=== PATIENT | male | born 1965 | race Caucasian/White ===

== ENCOUNTER 2017-11-18 22:53 | Inpatient (IN) | payer BC ==
[~2017-11-18] VITALS: Ht 175.3 cm; Wt 108.4 kg
[2017-11-18 23:05] VITALS: Ht 175.3 cm; Wt 108.4 kg
[2017-11-18 23:38] LABS: BASOPHIL % 0.4 % (0-2); PLATELET COUNT 173 x10^3mcL (130-400); RED CELL DISTRIBUTION WIDTH 12.3 % (11.5-14.5)
[2017-11-18 23:48] LABS: CALCIUM 8.4 mg/dL (8.5-10.1); CARBON DIOXIDE 26.9 mmol/L (21-32); CHLORIDE SERUM 108 mmol/L (98-107); CREATININE SERUM 0.9 mg/dL (0.7-1.3); GFR1 > 60 mL/min; GLUCOSE SERUM 110 mg/dL (74-106); POTASSIUM SERUM 4.2 mmol/L (3.5-5.1); SODIUM SERUM 145 mmol/L (136-145)
[2017-11-18 23:52] LABS: ALBUMIN 3.5 g/dL (3.4-5.0); ALKALINE PHOSPHATASE 77 U/L (46-116); ALT/SGPT 38 U/L (16-63); AMYLASE 79 U/L (25-115); AST/SGOT 24 U/L (15-37); BILIRUBIN TOTAL 0.29 mg/dL (0.20-1.00); CHOLESTEROL 167 mg/dL (<200); LIPASE 110 IU/L (73-393); TOTAL PROTEIN, SERUM 7.3 g/dL (6.4-8.2)
[2017-11-18 23:53] LABS: HDL CHOLESTEROL 32 mg/dL (40-60)
[2017-11-19] MEDS ORDERED: TRAMADOL HCL50 MG PO (00:33)
[2017-11-19] MEDS ORDERED: HYDROCHLOROTH12.5 M2 PO (00:34)
[2017-11-19 01:29] LABS: MAGNESIUM 2.3 mg/dL (1.8-2.4); PHOSPHOROUS 4.7 mg/dL (2.5-4.9)
[2017-11-19 01:37] LABS: FREE T4 1.05 ng/dL (0.76-1.46); T4(THYROXINE) 5.7 ug/dL (4.7-13.3)
[2017-11-19 01:57] LABS: CHOLESTEROL/HDL RATIO 5.3
[2017-11-19] MEDS ORDERED: LOSARTAN POTASS50 M1 PO (02:17)
[2017-11-19 02:28] VITALS: BP 111/71
[2017-11-19 02:44] LABS: microscopic required? NO
[2017-11-19 02:45] LABS: T3 TOTAL 1.15 ng/mL
[2017-11-19 03:01] LABS: UA SPECIFIC GRAVITY >=1.030 (1.005-1.035); urine erythrocyte NEGATIVE (NEGATIVE)
[2017-11-19 03:12] LABS: AMPHETAMINE QUAL UR NONE DETECTED (See below)
[2017-11-19 06:42] VITALS: BP 108/68
[2017-11-19 06:51] LABS: CALCIUM 8.6 mg/dL (8.5-10.1); CARBON DIOXIDE 28.7 mmol/L (21-32); CHLORIDE SERUM 109 mmol/L (98-107); GFR1 > 60 mL/min; GLUCOSE SERUM 106 mg/dL (74-106); MAGNESIUM 2.4 mg/dL (1.8-2.4); PHOSPHOROUS 4.1 mg/dL (2.5-4.9); POTASSIUM SERUM 4.4 mmol/L (3.5-5.1); SODIUM SERUM 143 mmol/L (136-145)
[2017-11-19 06:52] LABS: BASOPHIL % 0.4 % (0-2); PLATELET COUNT 158 x10^3mcL (130-400); RED CELL DISTRIBUTION WIDTH 12.6 % (11.5-14.5)
[2017-11-19 09:20] VITALS: BP 132/74
== END 2017-11-19 11:08 | disposition left against medical advice (07) | DRG 391 ==
LOC: ED 22:53 → DU 11-19 00:48
PROVIDERS: Emergency Medicine; Family Medicine
DX: K21.9 Gastro-esophageal reflux disease without esophagitis (principal); N17.0 Acute kidney failure with tubular necrosis; E78.5 Hyperlipidemia, unspecified; M79.7 Fibromyalgia; B18.2 Chronic viral hepatitis C; R73.9 Hyperglycemia, unspecified; I10 Essential (primary) hypertension; Z53.21 Procedure and treatment not carried out due to patient leaving prior to being seen by health care provider; Z88.0 Allergy status to penicillin; Z90.49 Acquired absence of other specified parts of digestive tract
CPT/HCPCS: 83880; 84439; J7030